=== PATIENT | female | born 1930 | race African-American/Black ===

== ENCOUNTER 2018-06-24 14:53 | Inpatient (IN) | payer MEDICARE ==
[~2018-06-24] VITALS: Ht 172.7 cm; Wt 64.9 kg
[2018-06-24] MEDS ORDERED: SODIUM CHLORIDE 0.9% 1,000 ML IV ONE (17:48)
[2018-06-24] MEDS ORDERED: ONDANSETRON HCL 4MG/2ML INJ IV STA (17:48)
[2018-06-24] MEDS ORDERED: MORPHINE SULFATE 4 MG/ML CPJ (NOT FOR IM USE) IV STA (17:48)
[2018-06-24 17:56] LABS: CHLORIDE 104 mEq/L (98-107)
[2018-06-24 18:01] LABS: BASOPHILS % 0.3 % (0.0-2.0); EOSINOPHILS % 0.6 % (0.0-5.0); HEMATOCRIT. 39.1 % (36.0-48.0); LYMPHOCYTES % 15.1 % (20.0-50.0); MEAN CORPUSCULAR HEMOGLOBIN 29.3 pg (28.0-32.0); MEAN CORPUSCULAR VOLUME 87.7 fL (81.0-99.0); MEAN PLATELET VOLUME 9.9 fl (7.4-10.4); MONOCYTES % 7.5 % (2.0-8.0); NEUTROPHILS % 76.5 % (40.0-76.0); PLATELET 178 x1000/uL (130-400); RED BLOOD CELL COUNT 4.46 mill/uL (4.2-5.4); RED CELL DISTRIBUTION WIDTH 14.7 % (11.6-14.6)
[2018-06-24 18:06] LABS: INR 1.1; PARTIAL THROMBOPLASTIN TIME 29.6 sec (23.4-31.0); PROTHROMBIN TIME 11.4 sec (9.1-11.1)
[2018-06-25] VITALS (7 sets, daily range): BP systolic 132–157; BP diastolic 71–87
[2018-06-25] MEDS ORDERED: AMLO10TA80 PO (01:47)
[2018-06-25] MEDS ORDERED: HYDROMORPHONE HCL/PF 2MG/ML CPJ IV PRN (03:00)
[2018-06-25 07:41] LABS: CREATINE KINASE 437 IU/L (26-192)
[2018-06-25 07:42] LABS: CREATINE KINASE MB FRACTION 2.8 ng/mL (0.5-3.6)
[2018-06-25] MEDS ORDERED: AMLODIPINE 2.5MG TABLET PO SCH (09:00)
[2018-06-25] MEDS ORDERED: HEPARIN 5000 UNITS/ML VIAL SUBCUT SCH (09:00)
[2018-06-25] MEDS ORDERED: POTASSIUM CHLORIDE 20MEQ TABLET SR PO SCH (09:00)
[2018-06-25 17:15] LABS: CREATINE KINASE MB FRACTION 2.3 ng/mL (0.5-3.6)
== END 2018-06-25 17:01 | disposition home or self-care (01) | DRG 536 ==
LOC: ER 14:53 → 6WST 21:32 → EDBEDREQ 21:49 → EDBEDREQTM 21:49 → ENRESERV 23:31
PROVIDERS: ADMIT Internal Medicine; ATTEND Internal Medicine
DX: S72.092A Other fracture of head and neck of left femur, initial encounter for closed fracture (principal); E87.6 Hypokalemia; J44.9 Chronic obstructive pulmonary disease, unspecified; I10 Essential (primary) hypertension; M19.90 Unspecified osteoarthritis, unspecified site; W01.0XXA Fall on same level from slipping, tripping and stumbling without subsequent striking against object, initial encounter; Z85.3 Personal history of malignant neoplasm of breast; Z90.11 Acquired absence of right breast and nipple; Z90.710 Acquired absence of both cervix and uterus; Y93.89 Activity, other specified; Y92.89 Other specified places as the place of occurrence of the external cause; Y99.8 Other external cause status
CPT/HCPCS: 36415; 71045; 73110; 73502; 82550; 82553; 84484; 86850; 86900; 93005; 96374; 96375; 99285; J1170; J1644; J2270; J2405; J7030

== ENCOUNTER 2021-07-03 10:35 | Inpatient (IN) | payer MEDICARE, OTHER ==
[~2021-07-03] VITALS: Ht 160 cm; Wt 53.5 kg
[~2021-07-03 10:35] MED LIST: AMLO10TA80 PO
[2021-07-03] MEDS ORDERED: MORPHINE SULFATE 4 MG/ML CPJ (NOT FOR IM USE) IV STA (11:08)
[2021-07-03] MEDS ORDERED: ONDANSETRON HCL 4MG/2ML INJ IV STA (11:08)
[2021-07-03] MEDS ORDERED: SODIUM CHLORIDE 0.9% 1,000 ML IV ONE (11:15)
[2021-07-03 11:41] LABS: CHLORIDE 108 mEq/L (98-107)
[2021-07-03 11:42] LABS: BASOPHILS % 0.6 % (0.0-2.0); EOSINOPHILS % 4.6 % (0.0-5.0); HEMATOCRIT. 35.3 % (36.0-48.0); HEMOGLOBIN. 11.7 g/dL (12.0-16.0); LYMPHOCYTES % 24.5 % (20.0-50.0); MEAN CORPUSCULAR HEMOGLOBIN 28.5 pg (28.0-32.0); MEAN CORPUSCULAR VOLUME 86.2 fL (81.0-99.0); MEAN PLATELET VOLUME 9.7 fl (7.4-10.4); MONOCYTES % 7.6 % (2.0-8.0); NEUTROPHILS % 62.7 % (40.0-76.0); PLATELET 167 x1000/uL (130-400); RED BLOOD CELL COUNT 4.09 mill/uL (4.2-5.4); RED CELL DISTRIBUTION WIDTH 15.1 % (11.6-14.6)
[2021-07-03 11:43] LABS: INR 1.2; PROTHROMBIN TIME 12.3 sec (9.6-11.0)
[2021-07-03] MEDS ORDERED: MORPHINE SULFATE 4 MG/ML CPJ (NOT FOR IM USE) IV ONE (13:45)
[2021-07-03] MEDS ORDERED: HYDROMORPHONE HCL/PF 2MG/ML CPJ IV ONE (14:00)
[2021-07-03] MEDS ORDERED: ADENOSINE 3 MG/ML 2ML VIAL IV ONE ×3 (16:00)
[2021-07-03] MEDS ORDERED: DILTIAZEM HCL 5MG/ML 5ML VIAL IV ONE (16:00)
[2021-07-04] MEDS ORDERED: HYDROMORPHONE HCL/PF 2MG/ML CPJ IV PRN ×3 (03:45→21:30)
[2021-07-04] MEDS: DEXT 5%/0.45% NACL 1000ML 1,000 ML IV SCH ×2 (06:36→17:05)
[2021-07-04] MEDS: PANTOPRAZOLE 40MG DR TABLET PO SCH (06:37)
[2021-07-04 06:45] VITALS: BP 124/73
[2021-07-04 08:00] VITALS: BP 112/60
[2021-07-04] MEDS: AMLODIPINE 5MG TABLET PO SCH (10:27)
[2021-07-04 12:00] VITALS: BP 114/57
[2021-07-04] MEDS ORDERED: KCL 10MEQ/50ML PREMIX 50 ML IV NR (12:30)
[2021-07-04] MEDS ORDERED: LIDOCAINE HCL/EPINEPHRINE 1%-EPI 1:100,000 30 ML VIAL INFIL ONE (12:45)
[2021-07-04] MEDS ORDERED: POLYMYXIN B SULFATE 500000 UNITS/VIAL ONE (12:46)
[2021-07-04] MEDS ORDERED: SODIUM CHLORIDE 0.9% IRRIG SOL 2,000 ML IR ONE (12:46)
[2021-07-04] MEDS ORDERED: SODIUM CHLORIDE 0.9% 1,000 ML ONE (12:46)
[2021-07-04] MEDS ORDERED: VANCOMYCIN HCL 500 MG/VIAL ONE (12:46)
[2021-07-04] MEDS ORDERED: SODIUM CHLORIDE 0.9% INJ 10ML FLUSH IVF ONE (12:46)
[2021-07-04 16:00] VITALS: BP 100/62
[2021-07-04] MEDS ORDERED: HYDROCODONE/ACETAMINOPHEN 5/325MG TABLET PO PRN ×2 (19:30)
[2021-07-04] MEDS ORDERED: ONDANSETRON HCL 4MG/2ML INJ IV PRN ×2 (19:30→21:30)
[2021-07-04] MEDS ORDERED: CEFAZOLIN SODIUM 1000MG/VIAL ONE (19:38)
[2021-07-04] MEDS ORDERED: DEXAMETHASONE 4MG/ML 1ML VIAL ONE ×2 (19:38→19:46)
[2021-07-04] MEDS: ATORVASTATIN CALCIUM 40MG TABLET PO SCH (21:00)
[2021-07-04] MEDS ORDERED: LABETALOL 5MG/ML SYR 20 MG/4 ML SYRINGE IV PRN (21:30)
[2021-07-04] MEDS ORDERED: MEPERIDINE HCL/PF 25MG/ML CPJ IV PRN (21:30)
[2021-07-05] VITALS: BP_SYST 130; BP_DIAS 64; BP_DIAS 65
[2021-07-05] MEDS: DEXT 5%/0.45% NACL 1000ML 1,000 ML IV SCH ×2 (00:54→21:08)
[2021-07-05 04:00] VITALS: BP 132/68
[2021-07-05] MEDS: CEFAZOLIN 1000MG PREMIX 50 ML IV SCH ×3 (04:24→18:10)
[2021-07-05] MEDS: PANTOPRAZOLE 40MG DR TABLET PO SCH (06:49)
[2021-07-05 06:58] LABS: HEMATOCRIT. 28.6 % (36.0-48.0); MEAN CORPUSCULAR HEMOGLOBIN 29.3 pg (28.0-32.0); MEAN CORPUSCULAR VOLUME 86.1 fL (81.0-99.0); MEAN PLATELET VOLUME 10.2 fl (7.4-10.4); PLATELET 133 x1000/uL (130-400); RED BLOOD CELL COUNT 3.32 mill/uL (4.2-5.4)
[2021-07-05 07:04] LABS: HEMOGLOBIN. 9.7 g/dL (12.0-16.0)
[2021-07-05 07:06] LABS: CHLORIDE 110 mEq/L (98-107)
[2021-07-05 07:15] LABS: LDL CHOLESTEROL 61 mg/dL (5-100)
[2021-07-05 07:16] LABS: HDL CHOLESTEROL 49 mg/dL (40-59)
[2021-07-05 07:19] LABS: CHLORIDE 110 mEq/L (98-107)
[2021-07-05 08:05] VITALS: BP 125/70
[2021-07-05] MEDS: AMLODIPINE 5MG TABLET PO SCH (09:05)
[2021-07-05] MEDS: ENOXAPARIN 30MG/0.3ML SYR SUBCUT SCH (09:08)
[2021-07-05 12:51] LABS: PLATELET ESTIMATE NORMAL
[2021-07-05 16:00] VITALS: BP 142/61
[2021-07-05 20:00] VITALS: BP 107/57
[2021-07-05] MEDS: ATORVASTATIN CALCIUM 40MG TABLET PO SCH (21:07)
[2021-07-06] VITALS: BP 111/65
[2021-07-06] MEDS: CEFAZOLIN 1000MG PREMIX 50 ML IV SCH (03:29)
[2021-07-06] MEDS ORDERED: FAMOTIDINE 20MG TABLET PO SCH (07:20)
[2021-07-06 08:00] VITALS: BP 120/69
[2021-07-06] MEDS: ENOXAPARIN 30MG/0.3ML SYR SUBCUT SCH (10:16)
[2021-07-06] MEDS: AMLODIPINE 5MG TABLET PO SCH (10:16)
[2021-07-06 11:09] LABS: BASOPHILS % 0.1 % (0.0-2.0); HEMATOCRIT. 26.6 % (36.0-48.0); HEMOGLOBIN. 8.8 g/dL (12.0-16.0); LYMPHOCYTES % 12.1 % (20.0-50.0); MEAN CORPUSCULAR VOLUME 87.4 fL (81.0-99.0); MEAN PLATELET VOLUME 10.2 fl (7.4-10.4); MONOCYTES % 10.3 % (2.0-8.0); NEUTROPHILS % 77.5 % (40.0-76.0); PLATELET 127 x1000/uL (130-400); RED BLOOD CELL COUNT 3.04 mill/uL (4.2-5.4); RED CELL DISTRIBUTION WIDTH 15.4 % (11.6-14.6)
[2021-07-06 12:00] VITALS: BP 114/61
[2021-07-06] MEDS: DEXT 5%/0.45% NACL 1000ML 1,000 ML IV SCH (12:53)
[2021-07-06 16:00] VITALS: BP 130/63
[2021-07-06] MEDS ORDERED: NALOXONE HCL 0.4MG/ML VIAL IV PRN (17:45)
[2021-07-06] MEDS ORDERED: DOCUSATE SODIUM 250MG CAPSULE PO SCH (19:15)
[2021-07-06 19:48] VITALS: BP 130/67
== END 2021-07-06 20:25 | DRG 482 ==
LOC: ER 10:35 → SUPCPDRO 15:32 → 6EST 07-04 00:13 → EDBEDREQDT 07-04 00:17 → EDBEDREQSVC 07-04 00:17 → EDBEDREQ 07-04 00:17 → EDBEDREQTM 07-04 00:17 → ENRESERV 07-04 00:36 → 6EST 07-04 01:13
PROVIDERS: ADMIT Internal Medicine; ATTEND Internal Medicine
PROC: 0QSC04Z Reposition Left Lower Femur with Internal Fixation Device, Open Approach (ICD-10-PCS; principal; 2021-07-04)
DX: S72.392A Other fracture of shaft of left femur, initial encounter for closed fracture (principal); D64.9 Anemia, unspecified; E78.00 Pure hypercholesterolemia, unspecified; E86.0 Dehydration; E87.6 Hypokalemia; E78.5 Hyperlipidemia, unspecified; I44.7 Left bundle-branch block, unspecified; I48.0 Paroxysmal atrial fibrillation; Z20.822 Contact with and (suspected) exposure to COVID-19; Z96.642 Presence of left artificial hip joint; I10 Essential (primary) hypertension; W18.39XA Other fall on same level, initial encounter; R26.89 Other abnormalities of gait and mobility; Z79.899 Other long term (current) drug therapy; Z90.710 Acquired absence of both cervix and uterus; Z90.11 Acquired absence of right breast and nipple; Y93.89 Activity, other specified; Y92.89 Other specified places as the place of occurrence of the external cause; Y99.8 Other external cause status; Z85.3 Personal history of malignant neoplasm of breast; R29.6 Repeated falls
CPT/HCPCS: 36415; 71045; 73502; 73552; 73560; 76000; 80048; 80053; 80061; 82962; 83735; 84443; 84484; 85025; 86850; 86900; 87426; 93005; 93306; 93970; 99285; C1713; J0690; J1100; J1170; J1650; J2175; J2270; J2405; J3370; J3480; J3490; J7030; L1830